=== PATIENT | male | born 1980 | race Caucasian/White ===

== ENCOUNTER 2023-03-15 19:22 | Emergency (ER) | payer MEDICAID ==
[~2023-03-15] VITALS: Ht 167.6 cm; Wt 61.0 kg
[2023-03-15] MEDS ORDERED: KETOROLAC 30MG/ML VIAL IV STA (20:50)
[2023-03-15] MEDS ORDERED: FAMOTIDINE 20MG/2ML VIAL IV ONE (21:00)
[2023-03-15] MEDS ORDERED: SODIUM CHLORIDE 0.9% 1,000 ML IV ONE (21:00)
[2023-03-15 21:16] LABS: CHLORIDE 98 mEq/L (98-107)
[2023-03-15 21:17] LABS: BASOPHILS % 0.7 % (0.0-2.0); EOSINOPHILS % 0.8 % (0.0-5.0); HEMATOCRIT. 39.4 % (42.0-52.0); HEMOGLOBIN. 14.2 g/dL (14.0-18.0); LYMPHOCYTES % 30.8 % (20.0-50.0); MEAN CORPUSCULAR HEMOGLOBIN 34.8 pg (28.0-32.0); MEAN CORPUSCULAR VOLUME 96.8 fL (80.0-94.0); MONOCYTES % 7.7 % (2.0-8.0); PLATELET 201 x1000/uL (130-400); RED BLOOD CELL COUNT 4.07 mill/uL (4.7-6.1); RED CELL DISTRIBUTION WIDTH 11.5 % (11.6-14.6)
[2023-03-15 21:20] LABS: INR 1.1; PROTHROMBIN TIME 11.4 sec (9.6-11.0)
[2023-03-16] MEDS ORDERED: FAMO-135 MT (01:32)
[2023-03-16 02:00] VITALS: BP 130/79
== END 2023-03-16 04:25 | disposition home or self-care (01) ==
LOC: ER 19:22
DX: R07.2 Precordial pain (principal); R10.13 Epigastric pain; E11.9 Type 2 diabetes mellitus without complications; I10 Essential (primary) hypertension
CPT/HCPCS: 36415; 71045; 74176; 80053; 83690; 84484; 85025; 85610; 93005; 96374; 96375; 99285; J1885; J3490; J7030; Z7610

== ENCOUNTER 2025-03-10 09:55 | Emergency (ER) | payer MEDICAID, OTHER ==
[~2025-03-10] VITALS: Ht 170.2 cm; Wt 68.0 kg
[~2025-03-10 09:55] MED LIST: FAMO-135 MT
[2025-03-10 10:12] VITALS: O2SAT 100
[2025-03-10 10:43] LABS: BASOPHILS % 0.9 % (0.0-2.0); EOSINOPHILS % 0.6 % (0.0-5.0); HEMATOCRIT. 41.5 % (42.0-52.0); HEMOGLOBIN. 13.7 g/dL (14.0-18.0); LYMPHOCYTES % 23.3 % (20.0-50.0); MEAN CORPUSCULAR HEMOGLOBIN 36.3 pg (28.0-32.0); MEAN CORPUSCULAR HGB CONC 32.9 g/dL (31.0-37.0); MEAN CORPUSCULAR VOLUME 110.2 fL (80.0-94.0); MEAN PLATELET VOLUME 8.5 fl (7.4-10.4); MONOCYTES % 10.5 % (2.0-8.0); NEUTROPHILS % 64.7 % (40.0-76.0); PLATELET 203 x1000/uL (130-400); RED BLOOD CELL COUNT 3.76 mill/uL (4.7-6.1); RED CELL DISTRIBUTION WIDTH 12.3 % (11.6-14.6); WHITE BLOOD COUNT 5.9 x1000/uL (4.5-11.0)
[2025-03-10 10:48] LABS: CARBON DIOXIDE 19 mEq/L (21-32); CHLORIDE 95 mEq/L (98-107); POTASSIUM 4.1 mEq/L (3.5-5.1); SODIUM 133 mEq/L (136-145)
[2025-03-10] MEDS: ACETAMINOPHEN 500MG TABLET PO ONE (10:48)
[2025-03-10 10:53] LABS: DIFFERENTIAL COMMENT 1
[2025-03-10 10:54] LABS: ADD RBC MORPHOLOGY YES; UREA NITROGEN BLOOD 17 mg/dL (9-23)
[2025-03-10 10:55] LABS: ALANINE AMINOTRANSFERASE 11 IU/L (10-49); ALBUMIN 4.3 g/dL (3.2-4.8); ASPARTATE AMINOTRANSFERASE 11 IU/L (<34)
[2025-03-10 10:56] LABS: BETA HYDROXYBUTYRATE 7.6 mMol/L (0.0-0.3); BILIRUBIN TOTAL 0.8 mg/dL (0.1-1.0); GLUCOSE 404 mg/dL (70-105); PROTEIN TOTAL 8.2 g/dL (6.0-8.3)
[2025-03-10] MEDS: SODIUM CHLORIDE 0.9% 1,000 ML IV ONE ×3 (11:20→13:08)
[2025-03-10 12:14] LABS: ANISOCYTOSIS 1+; PLATELET ESTIMATE NORMAL
[2025-03-10] MEDS: INSULIN REGULAR (HUMULIN R) 1000UNITS/10ML VIAL SUBCUT NR (12:15)
[2025-03-10 14:29] LABS: BG BASE EXCESS -5.9 mmol/L (-2.0-3.0); BG CARBOXYHEMOGLOBIN 0.7 % (0.5-1.5); BG DEOXYHEMOGLOBIN 2.5 % (0.0-5.0); BG FRACTION INSPIRED OXYGEN 21; BG HCO3 ACT 17.8 mmol/L (21.0-28.0); BG METHEMOGLOBIN 0.3 % (0.5-1.5); BG OXYGEN SATURATION 97.5 % (94.0-98.0); BG OXYHEMOGLOBIN 96.5 % (94.0-98.0); BG PCO2 29.8 mmHg (35.0-48.0); BG PH 7.395 (7.350-7.450); BG PO2 107.1 mmHg (83.0-108.0); BG SAMPLE SITE RIGHT BRACHIAL; BG TOTAL HEMOGLOBIN 12.4 g/dL (13.5-17.5); BG VENT MODE ROOM AIR
[2025-03-10 16:30] VITALS: BP 112/71; PULSE 68; RESP 12; TEMP 36.6; O2SAT 100
== END 2025-03-10 16:45 | disposition home or self-care (01) ==
LOC: ER 09:55
DX: E11.65 Type 2 diabetes mellitus with hyperglycemia (principal); M79.18 Myalgia, other site; Z79.899 Other long term (current) drug therapy
CPT/HCPCS: 80053; 82010; 82962; 85025; 36415; 82805; 82375; 96361; 96374; 99285; 36600; J1815; J7030; Z7610 ×2